=== PATIENT | female | born 1960 | race Caucasian/White ===

== ENCOUNTER 2021-01-22 18:53 | Inpatient (IN) ==
[2021-01-22] MEDS ORDERED: Ondansetron 4 MG/2 ML VIAL IVP ONE (19:51)
[2021-01-22] MEDS ORDERED: 0.9 % Sodium Chloride 1,000 ML IVC ONE (19:51)
[2021-01-22] MEDS ORDERED: *HR* FentaNYL (PF) 100 MCG/2 ML VIAL IVP ONE (19:55)
[2021-01-22 20:56] LABS: Bilirubin,Urine Negative (Negative); Blood,Urine Negative (Negative); Clarity,Urine Clear (Clear); Color,Urine Yellow (Yellow); Glucose,Urine (UA) Normal (Normal); Ketones,Urine Trace mg/dL (Negative); Leukocyte Esterase,Urine Negative (Negative); Nitrite,Urine Negative (Negative); Protein,Urine Negative (Neg-Trace); Specific Gravity,Urine 1.018 (1.010-1.025)
[2021-01-22 20:58] LABS: Basophils % 0.2 %; Hematocrit 40.4 % (35.3-44.9); Hemoglobin 13.9 g/dL (11.5-15.4); Immature Granulocytes % 0.5 % (0-4); Lymphocytes # 0.5 K/mcL (0.6-4.6); Lymphocytes % 3.5 %; Mean Corpuscular HGB Conc 34.4 g/dL (31.6-35.5); Mean Corpuscular Hemoglobin 31.4 pg (28.0-33.3); Mean Corpuscular Volume 91.4 fL (83.0-100.0); Mean Platelet Volume 8.8 fL (9.4-12.4); Monocytes # 0.4 K/mcL (0.0-1.3); Monocytes % 2.6 %; Neutrophils # 12.9 K/mcL (1.6-8.9); Platelet Count 307 K/mcL (140-400); Red Blood Count 4.42 M/mcL (3.82-4.97); Red Cell Distribution Width 12.2 % (11.5-14.5); Segmented Neutrophils % 93.2 %; White Blood Count 13.9 K/mcL (4.3-11.1)
[2021-01-22] MEDS ORDERED: Morphine Sulfate 2 MG/ML SYRINGE IVP ONE (21:18)
[2021-01-22 21:27] LABS: Alanine Aminotransferase 113 Units/L (7-52); Albumin 4.4 g/dL (3.5-5.7); Albumin/Globulin Ratio 1.4 (1.1-2.2); Alkaline Phosphatase 119 Units/L (34-104); Amylase 22 Units/L (29-103); Aspartate Amino Transferase 61 Units/L (13-39); BUN/Creatinine Ratio 20 (6-26); Bilirubin,Direct 0.8 mg/dL (0.0-0.2); Bilirubin,Total 1.8 mg/dL (0.3-1.0); Blood Urea Nitrogen 12 mg/dL (6-20); Calcium 9.9 mg/dL (8.6-10.3); Carbon Dioxide 24 mEq/L (23-29); Chloride 99 mEq/L (98-107); Globulin 3.2 g/dL (2.4-3.5); Glucose 133 mg/dL (70-105); Lipase < 3 Units/L (11-82); Osmolality,Calculated 278 (280-300); Potassium 3.7 mEq/L (3.5-5.1); Sodium 133 mEq/L (136-145); Total Protein 7.6 g/dL (6.4-8.9); eGFR For African Americans > 60 (> 60); eGFR For Non-African Americans > 60 (> 60)
[2021-01-22] MEDS ORDERED: Piperacillin/Tazobactam 3.375 GM in 0.9 % Sodium Chloride Mini Bag 100 ML IVPB ONE (21:30)
[2021-01-22] MEDS ORDERED: Ondansetron 4 MG/2 ML VIAL IVP PRN (21:54)
[2021-01-22] MEDS ORDERED: Naloxone 0.4 MG/ML INJ IVP PRN (21:54)
[2021-01-22] MEDS ORDERED: 0.9 % Sodium Chloride 1,000 ML IVC SCH (22:00)
[2021-01-22] MEDS ORDERED: *HR* FentaNYL (PF) 100 MCG/2 ML VIAL ONE (22:51)
[2021-01-22] MEDS ORDERED: *HR* Propofol 200 MG/20 ML VIAL IVP ONE (22:51)
[2021-01-22] MEDS ORDERED: *HR* Rocuronium Bromide 50 MG/5 ML VIAL ONE (22:51)
[2021-01-22] MEDS ORDERED: *HR* HYDROMORPHONE 2 MG/ML VIAL ONE (22:51)
[2021-01-23] MEDS ORDERED: *HR* HYDROmorphone PF 0.5 MG/0.5 ML SYRINGE IVP PRN ×2 (00:23→02:27)
[2021-01-23] MEDS ORDERED: Ondansetron 4 MG/2 ML VIAL IVP PRN ×2 (00:23→02:27)
[2021-01-23] MEDS ORDERED: *HR* Phenylephrine 10 MG/ML VIAL ONE (00:40)
[2021-01-23] MEDS ORDERED: Neostigmine Methylsulfate 3 MG/3 ML SYRINGE ONE (01:25)
[2021-01-23] MEDS ORDERED: 0.9 % Sodium Chloride 1,000 ML IVC SCH (02:27)
[2021-01-23] MEDS ORDERED: Naloxone 0.4 MG/ML INJ IVP PRN (02:27)
[2021-01-23] MEDS: Ondansetron 4 MG/2 ML VIAL IVP PRN ×2 (02:41→17:34)
[2021-01-23] MEDS: 0.9 % Sodium Chloride 1,000 ML IVC SCH ×2 (05:08→13:13)
[2021-01-23 05:15] LABS: Hematocrit 37.6 % (35.3-44.9); Mean Corpuscular HGB Conc 32.7 g/dL (31.6-35.5); Mean Corpuscular Hemoglobin 30.6 pg (28.0-33.3); Mean Corpuscular Volume 93.5 fL (83.0-100.0); Platelet Count 268 K/mcL (140-400); Red Blood Count 4.02 M/mcL (3.82-4.97); Red Cell Distribution Width 12.6 % (11.5-14.5); White Blood Count 16.8 K/mcL (4.3-11.1)
[2021-01-23 05:18] LABS: Hemoglobin 12.3 g/dL (11.5-15.4)
[2021-01-23] MEDS: Piperacillin/Tazobactam 3.375 GM in 0.9 % Sodium Chloride Mini Bag 100 ML IVPB SCH ×3 (05:25→22:16)
[2021-01-23 05:32] LABS: BUN/Creatinine Ratio 24 (6-26); Blood Urea Nitrogen 12 mg/dL (6-20); Calcium 8.6 mg/dL (8.6-10.3); Carbon Dioxide 22 mEq/L (23-29); Chloride 106 mEq/L (98-107); Glucose 177 mg/dL (70-105); Osmolality,Calculated 282 (280-300); Potassium 3.9 mEq/L (3.5-5.1); Sodium 134 mEq/L (136-145); eGFR For African Americans > 60 (> 60); eGFR For Non-African Americans > 60 (> 60)
[2021-01-23] MEDS ORDERED: Piperacillin/Tazobactam 3.375 GM in 0.9 % Sodium Chloride Mini Bag 100 ML IVPB SCH (06:00)
[2021-01-24] MEDS: 0.9 % Sodium Chloride 1,000 ML IVC SCH (02:11)
[2021-01-24] MEDS: Ondansetron 4 MG/2 ML VIAL IVP PRN ×3 (02:12→23:12)
[2021-01-24] MEDS: Piperacillin/Tazobactam 3.375 GM in 0.9 % Sodium Chloride Mini Bag 100 ML IVPB SCH ×3 (06:21→21:48)
[2021-01-24] MEDS: *HR* Enoxaparin 40 MG/0.4 ML SYRINGE SQ SCH (06:23)
[2021-01-24 08:08] LABS: Hematocrit 31.7 % (35.3-44.9); Mean Corpuscular HGB Conc 32.8 g/dL (31.6-35.5); Mean Corpuscular Volume 94.3 fL (83.0-100.0); Platelet Count 260 K/mcL (140-400); Red Blood Count 3.36 M/mcL (3.82-4.97); Red Cell Distribution Width 12.9 % (11.5-14.5); White Blood Count 13.2 K/mcL (4.3-11.1)
[2021-01-24 08:17] LABS: Hemoglobin 10.4 g/dL (11.5-15.4)
[2021-01-24 08:28] LABS: BUN/Creatinine Ratio 19 (6-26); Blood Urea Nitrogen 10 mg/dL (6-20); Calcium 8.7 mg/dL (8.6-10.3); Carbon Dioxide 24 mEq/L (23-29); Chloride 105 mEq/L (98-107); Glucose 113 mg/dL (70-105); Osmolality,Calculated 278 (280-300); Potassium 3.3 mEq/L (3.5-5.1); Sodium 134 mEq/L (136-145); eGFR For African Americans > 60 (> 60); eGFR For Non-African Americans > 60 (> 60)
[2021-01-24] MEDS: Loratadine 10 MG TABLET PO SCH (08:57)
[2021-01-25 03:25] LABS: Basophils % 0.2 %; Eosinophils % 0.2 %; Hematocrit 33.5 % (35.3-44.9); Hemoglobin 11.5 g/dL (11.5-15.4); Immature Granulocytes % 0.7 % (0-4); Lymphocytes # 0.9 K/mcL (0.6-4.6); Lymphocytes % 6.9 %; Mean Corpuscular HGB Conc 34.3 g/dL (31.6-35.5); Mean Corpuscular Hemoglobin 31.5 pg (28.0-33.3); Mean Corpuscular Volume 91.8 fL (83.0-100.0); Monocytes # 0.8 K/mcL (0.0-1.3); Monocytes % 5.9 %; Neutrophils # 11.2 K/mcL (1.6-8.9); Platelet Count 341 K/mcL (140-400); Red Blood Count 3.65 M/mcL (3.82-4.97); Red Cell Distribution Width 12.5 % (11.5-14.5); Segmented Neutrophils % 86.1 %
[2021-01-25 03:45] LABS: BUN/Creatinine Ratio 22 (6-26); Blood Urea Nitrogen 11 mg/dL (6-20); Calcium 9.1 mg/dL (8.6-10.3); Carbon Dioxide 25 mEq/L (23-29); Chloride 103 mEq/L (98-107); Glucose 131 mg/dL (70-105); Osmolality,Calculated 283 (280-300); Potassium 3.5 mEq/L (3.5-5.1); Sodium 136 mEq/L (136-145); eGFR For African Americans > 60 (> 60); eGFR For Non-African Americans > 60 (> 60)
[2021-01-25] MEDS: Piperacillin/Tazobactam 3.375 GM in 0.9 % Sodium Chloride Mini Bag 100 ML IVPB SCH ×3 (06:04→20:24)
[2021-01-25] MEDS: *HR* Enoxaparin 40 MG/0.4 ML SYRINGE SQ SCH (06:05)
[2021-01-25] MEDS: Ondansetron 4 MG/2 ML VIAL IVP PRN ×2 (08:26→18:08)
[2021-01-25] MEDS: Loratadine 10 MG TABLET PO SCH (08:26)
[2021-01-25] MEDS: Scopolamine Patch 1.5 MG PATCH.TD72 TD ONE ×2 (11:15→11:46)
[2021-01-25] MEDS: *HR* Promethazine 25 MG/ML VIAL IM PRN (13:13)
[2021-01-25] MEDS ORDERED: *HR* Promethazine 25 MG/ML VIAL IM ONE (18:34)
[2021-01-26] MEDS: Piperacillin/Tazobactam 3.375 GM in 0.9 % Sodium Chloride Mini Bag 100 ML IVPB SCH ×3 (05:26→21:30)
[2021-01-26] MEDS: *HR* Enoxaparin 40 MG/0.4 ML SYRINGE SQ SCH (05:27)
[2021-01-26] MEDS: Loratadine 10 MG TABLET PO SCH (08:08)
[2021-01-26] MEDS: Ondansetron 4 MG/2 ML VIAL IVP PRN ×4 (08:20→21:30)
[2021-01-26] MEDS ORDERED: Saline Nasal Spray 44 ML BOTTLE NS PRN (10:39)
[2021-01-26] MEDS: 0.9 % Sodium Chloride 1,000 ML IVC SCH ×2 (13:05→23:08)
[2021-01-26] MEDS: *HR* Promethazine 25 MG/ML VIAL IM PRN (23:12)
[2021-01-27] MEDS: Ondansetron 4 MG/2 ML VIAL IVP PRN ×3 (03:40→16:09)
[2021-01-27 05:13] LABS: Hematocrit 34.7 % (35.3-44.9); Hemoglobin 11.8 g/dL (11.5-15.4); Mean Corpuscular Hemoglobin 31.2 pg (28.0-33.3); Mean Corpuscular Volume 91.8 fL (83.0-100.0); Mean Platelet Volume 8.7 fL (9.4-12.4); Platelet Count 434 K/mcL (140-400); Red Blood Count 3.78 M/mcL (3.82-4.97); Red Cell Distribution Width 12.7 % (11.5-14.5); White Blood Count 13.7 K/mcL (4.3-11.1)
[2021-01-27] MEDS: Piperacillin/Tazobactam 3.375 GM in 0.9 % Sodium Chloride Mini Bag 100 ML IVPB SCH ×3 (05:14→22:05)
[2021-01-27] MEDS: *HR* Enoxaparin 40 MG/0.4 ML SYRINGE SQ SCH (05:15)
[2021-01-27] MEDS: *HR* Promethazine 25 MG/ML VIAL IM PRN ×2 (05:19→23:41)
[2021-01-27 05:34] LABS: BUN/Creatinine Ratio 41 (6-26); Blood Urea Nitrogen 21 mg/dL (6-20); Calcium 8.8 mg/dL (8.6-10.3); Carbon Dioxide 24 mEq/L (23-29); Chloride 104 mEq/L (98-107); Glucose 105 mg/dL (70-105); Osmolality,Calculated 291 (280-300); Potassium 3.3 mEq/L (3.5-5.1); Sodium 139 mEq/L (136-145); eGFR For African Americans > 60 (> 60); eGFR For Non-African Americans > 60 (> 60)
[2021-01-27] MEDS: Loratadine 10 MG TABLET PO SCH (09:46)
[2021-01-27] MEDS: 0.9 % Sodium Chloride 1,000 ML IVC SCH (09:54)
[2021-01-27] MEDS ORDERED: POTASSIUM CHLORIDE IN 0.9%NACL 40 MEQ/1,000 ML IV.SOLN IV ONE (12:23)
[2021-01-27] MEDS: 0.9 % Sodium Chloride w KCl 40 MEQ/1,000 ML MLS IVC SCH (14:03)
[2021-01-28] MEDS: 0.9 % Sodium Chloride w KCl 40 MEQ/1,000 ML MLS IVC SCH ×3 (00:59→22:24)
[2021-01-28 02:40] LABS: Hematocrit 32.2 % (35.3-44.9); Hemoglobin 10.9 g/dL (11.5-15.4); Mean Corpuscular HGB Conc 33.9 g/dL (31.6-35.5); Mean Corpuscular Hemoglobin 31.1 pg (28.0-33.3); Mean Corpuscular Volume 91.7 fL (83.0-100.0); Mean Platelet Volume 8.5 fL (9.4-12.4); Nucleated Red Blood Cells 0.2 /100 WBC (0); Platelet Count 412 K/mcL (140-400); Red Blood Count 3.51 M/mcL (3.82-4.97); Red Cell Distribution Width 12.7 % (11.5-14.5); White Blood Count 12.8 K/mcL (4.3-11.1)
[2021-01-28 02:57] LABS: BUN/Creatinine Ratio 32 (6-26); Blood Urea Nitrogen 14 mg/dL (6-20); Calcium 8.3 mg/dL (8.6-10.3); Carbon Dioxide 25 mEq/L (23-29); Chloride 104 mEq/L (98-107); Glucose 120 mg/dL (70-105); Osmolality,Calculated 284 (280-300); Potassium 3.5 mEq/L (3.5-5.1); Sodium 136 mEq/L (136-145); eGFR For African Americans > 60 (> 60); eGFR For Non-African Americans > 60 (> 60)
[2021-01-28 03:07] LABS: Anisocytosis 1+ (Not Present); Eosinophils # 0.5 K/mcL (0.0-0.6); Neutrophils # 9.7 K/mcL (1.6-8.9); Platelet Estimate Normal (Normal)
[2021-01-28 03:08] LABS: Polychromasia 1+ (Not Present)
[2021-01-28] MEDS: Piperacillin/Tazobactam 3.375 GM in 0.9 % Sodium Chloride Mini Bag 100 ML IVPB SCH ×3 (05:28→22:24)
[2021-01-28] MEDS: *HR* Enoxaparin 40 MG/0.4 ML SYRINGE SQ SCH (05:28)
[2021-01-28] MEDS: Ondansetron 4 MG/2 ML VIAL IVP PRN ×2 (05:32→13:44)
[2021-01-28] MEDS ORDERED: Scopolamine Patch 1.5 MG PATCH.TD72 TD ONE (08:34)
[2021-01-28] MEDS ORDERED: *HR* OxyCODONE/APAP 5/325 TABLET PO PRN (08:35)
[2021-01-28] MEDS ORDERED: Ibuprofen 800 MG TABLET PO ONE (08:35)
[2021-01-28] MEDS: *HR* Promethazine 25 MG/ML VIAL IM PRN (09:11)
[2021-01-28] MEDS: polyethylene glycoL 3350 17 GM POWD.PACK PO SCH (11:11)
[2021-01-28] MEDS: Loratadine 10 MG TABLET PO SCH (11:11)
[2021-01-28] MEDS ORDERED: Ibuprofen 800 MG TABLET PO PRN (16:00)
[2021-01-28] MEDS: Metoclopramide 10 MG/2 ML VIAL IVP SCH (18:52)
[2021-01-29] MEDS ORDERED: Metoclopramide 10 MG/2 ML VIAL IVP SCH
[2021-01-29] MEDS: Metoclopramide 10 MG/2 ML VIAL IVP SCH ×3 (00:14→15:40)
[2021-01-29 03:21] LABS: Basophils # 0.1 K/mcL (0.0-0.2); Basophils % 0.5 %; Eosinophils # 0.2 K/mcL (0.0-0.6); Eosinophils % 1.4 %; Hematocrit 30.7 % (35.3-44.9); Hemoglobin 10.2 g/dL (11.5-15.4); Immature Granulocytes % 4.7 % (0-4); Lymphocytes # 1.3 K/mcL (0.6-4.6); Lymphocytes % 11.4 %; Mean Corpuscular HGB Conc 33.2 g/dL (31.6-35.5); Mean Corpuscular Hemoglobin 30.6 pg (28.0-33.3); Mean Corpuscular Volume 92.2 fL (83.0-100.0); Mean Platelet Volume 8.4 fL (9.4-12.4); Monocytes # 1.4 K/mcL (0.0-1.3); Monocytes % 11.8 %; Neutrophils # 8.1 K/mcL (1.6-8.9); Platelet Count 397 K/mcL (140-400); Red Blood Count 3.33 M/mcL (3.82-4.97); Red Cell Distribution Width 12.6 % (11.5-14.5); Segmented Neutrophils % 70.2 %; White Blood Count 11.5 K/mcL (4.3-11.1)
[2021-01-29 03:50] LABS: BUN/Creatinine Ratio 22 (6-26); Blood Urea Nitrogen 9 mg/dL (6-20); Calcium 8.1 mg/dL (8.6-10.3); Carbon Dioxide 23 mEq/L (23-29); Chloride 105 mEq/L (98-107); Glucose 133 mg/dL (70-105); Osmolality,Calculated 277 (280-300); Potassium 3.9 mEq/L (3.5-5.1); Sodium 133 mEq/L (136-145); eGFR For African Americans > 60 (> 60); eGFR For Non-African Americans > 60 (> 60)
[2021-01-29] MEDS: *HR* Enoxaparin 40 MG/0.4 ML SYRINGE SQ SCH (05:40)
[2021-01-29] MEDS: Piperacillin/Tazobactam 3.375 GM in 0.9 % Sodium Chloride Mini Bag 100 ML IVPB SCH ×2 (05:40→15:37)
[2021-01-29] MEDS: 0.9 % Sodium Chloride w KCl 40 MEQ/1,000 ML MLS IVC SCH (10:15)
[2021-01-29] MEDS: Loratadine 10 MG TABLET PO SCH (10:17)
[2021-01-29] MEDS: polyethylene glycoL 3350 17 GM POWD.PACK PO SCH (10:18)
[2021-01-30 02:36] LABS: Basophils # 0.1 K/mcL (0.0-0.2); Basophils % 0.6 %; Eosinophils # 0.3 K/mcL (0.0-0.6); Eosinophils % 2.2 %; Hematocrit 34.3 % (35.3-44.9); Hemoglobin 11.4 g/dL (11.5-15.4); Immature Granulocytes % 3.7 % (0-4); Lymphocytes # 1.7 K/mcL (0.6-4.6); Lymphocytes % 12.6 %; Mean Corpuscular HGB Conc 33.2 g/dL (31.6-35.5); Mean Corpuscular Hemoglobin 30.8 pg (28.0-33.3); Mean Corpuscular Volume 92.7 fL (83.0-100.0); Mean Platelet Volume 8.5 fL (9.4-12.4); Monocytes # 1.2 K/mcL (0.0-1.3); Monocytes % 9.4 %; Neutrophils # 9.4 K/mcL (1.6-8.9); Platelet Count 437 K/mcL (140-400); Red Cell Distribution Width 12.6 % (11.5-14.5); Segmented Neutrophils % 71.5 %; White Blood Count 13.1 K/mcL (4.3-11.1)
[2021-01-30] MEDS: *HR* Enoxaparin 40 MG/0.4 ML SYRINGE SQ SCH (05:42)
[2021-01-30] MEDS: Loratadine 10 MG TABLET PO SCH (07:52)
[2021-01-30] MEDS: polyethylene glycoL 3350 17 GM POWD.PACK PO SCH (07:53)
[2021-01-30] MEDS ORDERED: Lactobacillus 1 EACH CAP.SPRINK PO SCH (09:00)
[2021-01-30 10:57] VITALS: BP 108/69
== END 2021-01-30 12:33 | disposition home or self-care (01) | DRG 854 ==
LOC: 3ANU 18:53 → EMEROOARM 18:53 → SUATTDRO 22:08 → 3ANU 01-23 00:06 → SUATTDRO 01-23 17:07
PROVIDERS: ADMIT Internal Medicine; ATTEND Internal Medicine

== ENCOUNTER 2021-08-19 11:02 | Inpatient (IN) ==
[~2021-08-19 11:02] MED LIST: Acetaminophen IV 1,000 MG/100 ML BAG IVPB ONE; Ringers Solution, Lactated 1,000 ML IVC ONE
[2021-08-19] MEDS ORDERED: Ringers Solution, Lactated 1,000 ML IVC ONE (11:15)
[2021-08-19] MEDS ORDERED: Famotidine 20 MG/2 ML VIAL IVP ONE (11:15)
[2021-08-19] MEDS ORDERED: cefOXitin 2,000 MG in Water for inj. (sterile) 10 ML IVP ONE (11:20)
[2021-08-19] MEDS ORDERED: *HR* Propofol 200 MG/20 ML VIAL IVP ONE ×2 (11:47→16:17)
[2021-08-19] MEDS ORDERED: *HR* Midazolam HCl 2 MG/2 ML VIAL ONE (11:47)
[2021-08-19] MEDS ORDERED: *HR* FentaNYL (PF) 100 MCG/2 ML VIAL ONE (11:47)
[2021-08-19] MEDS ORDERED: *HR* Rocuronium Bromide 50 MG/5 ML VIAL ONE ×2 (11:48→16:01)
[2021-08-19] MEDS ORDERED: *HR* Succinylcholine 200 MG/10 ML VIAL IVP ONE (11:48)
[2021-08-19] MEDS ORDERED: Lidocaine -MPF 2% 5 ML VIAL ONE (11:48)
[2021-08-19] MEDS ORDERED: Ondansetron 4 MG/2 ML VIAL ONE (11:48)
[2021-08-19] MEDS ORDERED: Dexmedetomidine HCl 400 MCG/100 ML MLS IVC ONE (11:56)
[2021-08-19] MEDS ORDERED: Naloxone 0.4 MG/ML INJ IVP PRN ×2 (12:18→18:29)
[2021-08-19] MEDS ORDERED: *HR* Labetalol 20 MG/4 ML SYRINGE IVP PRN (12:18)
[2021-08-19] MEDS ORDERED: Albuterol 2.5 MG/3 ML NEBULIZER IH PRN (12:18)
[2021-08-19] MEDS ORDERED: *HR* FentaNYL (PF) 100 MCG/2 ML VIAL IVP PRN ×2 (12:18→18:29)
[2021-08-19] MEDS ORDERED: *HR* HYDROmorphone (PF) 1 MG/ML SYRINGE IVP PRN (12:18)
[2021-08-19] MEDS ORDERED: Nitroglycerin 0.4 MG TAB.SUBL SL PRN (12:18)
[2021-08-19] MEDS ORDERED: Ondansetron 4 MG/2 ML VIAL IVP PRN ×2 (12:18→18:29)
[2021-08-19] MEDS ORDERED: EPHEDrine 50 MG/ML VIAL ONE (14:21)
[2021-08-19] MEDS ORDERED: *HR* HYDROMORPHONE 2 MG/ML VIAL ONE (15:41)
[2021-08-19] MEDS ORDERED: Sugammadex Sodium 200 MG/2 ML VIAL IV ONE (16:44)
[2021-08-19] MEDS ORDERED: *HR* Metoprolol 5 MG/5 ML VIAL IVP PRN (18:29)
[2021-08-19] MEDS: Acetaminophen IV 1,000 MG/100 ML BAG IVPB SCH ×2 (19:35→23:13)
[2021-08-19] MEDS: Ketorolac 30 MG/ML VIAL IVP SCH ×2 (19:36→23:09)
[2021-08-19] MEDS: Scopolamine Patch 1.5 MG PATCH.TD72 TD SCH (19:40)
[2021-08-19] MEDS: 0.9 % Sodium Chloride 1,000 ML IVC SCH (19:41)
[2021-08-19] MEDS: Piperacillin/Tazobactam 3.375 GM in 0.9 % Sodium Chloride Mini Bag 100 ML IVPB SCH (23:35)
[2021-08-20] MEDS: Ketorolac 30 MG/ML VIAL IVP SCH ×4 (05:31→23:47)
[2021-08-20] MEDS: Acetaminophen IV 1,000 MG/100 ML BAG IVPB SCH ×4 (05:31→23:53)
[2021-08-20] MEDS: Pantoprazole 40 MG VIAL IVP SCH (07:45)
[2021-08-20] MEDS: Piperacillin/Tazobactam 3.375 GM in 0.9 % Sodium Chloride Mini Bag 100 ML IVPB SCH ×2 (07:48→17:17)
[2021-08-20 08:56] LABS: Basophils % 0.1 %; Hematocrit 37.1 % (35.3-44.9); Hemoglobin 12.7 g/dL (11.5-15.4); Immature Granulocytes % 0.4 % (0-4); Lymphocytes # 0.4 K/mcL (0.6-4.6); Lymphocytes % 2.4 %; Mean Corpuscular HGB Conc 34.2 g/dL (31.6-35.5); Mean Corpuscular Hemoglobin 32.3 pg (28.0-33.3); Mean Corpuscular Volume 94.4 fL (83.0-100.0); Mean Platelet Volume 8.9 fL (9.4-12.4); Monocytes # 1.2 K/mcL (0.0-1.3); Monocytes % 7.1 %; Neutrophils # 15.2 K/mcL (1.6-8.9); Platelet Count 266 K/mcL (140-400); Red Blood Count 3.93 M/mcL (3.82-4.97); Red Cell Distribution Width 12.1 % (11.5-14.5); White Blood Count 16.9 K/mcL (4.3-11.1)
[2021-08-20 09:21] LABS: BUN/Creatinine Ratio 20 (6-26); Blood Urea Nitrogen 13 mg/dL (6-20); Calcium 8.7 mg/dL (8.6-10.3); Carbon Dioxide 25 mEq/L (23-29); Chloride 107 mEq/L (98-107); Glucose 152 mg/dL (70-105); Magnesium 1.7 mg/dL (1.6-2.6); Osmolality,Calculated 289 (280-300); Phosphorous 2.9 mg/dL (2.7-4.5); Potassium 3.6 mEq/L (3.5-5.1); Sodium 138 mEq/L (136-145); eGFR For African Americans > 60 (> 60); eGFR For Non-African Americans > 60 (> 60)
[2021-08-20] MEDS: 0.9 % Sodium Chloride 1,000 ML IVC SCH ×2 (10:19→21:30)
[2021-08-20] MEDS ORDERED: Chloraseptic Spray 177 ML BOTTLE MM PRN (11:37)
[2021-08-20] MEDS ORDERED: Lidocaine Viscous Oral Soln 15 ML SOLUTION MM PRN (11:37)
[2021-08-20] MEDS: *HR* Heparin 5,000 UNIT/ML VIAL SQ SCH (17:17)
[2021-08-21] MEDS: Acetaminophen IV 1,000 MG/100 ML BAG IVPB SCH ×3 (05:36→17:59)
[2021-08-21] MEDS: *HR* Heparin 5,000 UNIT/ML VIAL SQ SCH ×2 (05:36→17:53)
[2021-08-21] MEDS: Ketorolac 30 MG/ML VIAL IVP SCH ×4 (05:37→23:34)
[2021-08-21 05:59] LABS: Basophils % 0.1 %; Hematocrit 32.8 % (35.3-44.9); Immature Granulocytes % 0.5 % (0-4); Lymphocytes % 7.4 %; Mean Corpuscular HGB Conc 33.5 g/dL (31.6-35.5); Mean Corpuscular Volume 95.3 fL (83.0-100.0); Mean Platelet Volume 9.1 fL (9.4-12.4); Monocytes # 1.1 K/mcL (0.0-1.3); Monocytes % 8.2 %; Neutrophils # 10.7 K/mcL (1.6-8.9); Platelet Count 243 K/mcL (140-400); Red Blood Count 3.44 M/mcL (3.82-4.97); Red Cell Distribution Width 12.7 % (11.5-14.5); Segmented Neutrophils % 83.8 %; White Blood Count 12.8 K/mcL (4.3-11.1)
[2021-08-21 06:55] LABS: BUN/Creatinine Ratio 28 (6-26); Blood Urea Nitrogen 15 mg/dL (6-20); Calcium 8.7 mg/dL (8.6-10.3); Carbon Dioxide 25 mEq/L (23-29); Chloride 111 mEq/L (98-107); Glucose 103 mg/dL (70-105); Magnesium 1.9 mg/dL (1.6-2.6); Osmolality,Calculated 287 (280-300); Phosphorous 1.6 mg/dL (2.7-4.5); Potassium 3.2 mEq/L (3.5-5.1); Sodium 138 mEq/L (136-145); eGFR For African Americans > 60 (> 60); eGFR For Non-African Americans > 60 (> 60)
[2021-08-21] MEDS: 0.9 % Sodium Chloride 1,000 ML IVC SCH (08:03)
[2021-08-21] MEDS: Pantoprazole 40 MG VIAL IVP SCH (08:05)
[2021-08-21] MEDS ORDERED: Potassium Phosphate 44 MEQ in 0.9 % Sodium Chloride 250 ML IVPB ONE (11:34)
[2021-08-21] MEDS: D5% in 0.45% NACL w KCl 20 MEQ/1,000 ML MLS IVC SCH (14:20)
[2021-08-22] MEDS: Acetaminophen IV 1,000 MG/100 ML BAG IVPB SCH (03:13)
[2021-08-22] MEDS: D5% in 0.45% NACL w KCl 20 MEQ/1,000 ML MLS IVC SCH (03:26)
[2021-08-22 05:05] LABS: Basophils % 0.2 %; Eosinophils # 0.1 K/mcL (0.0-0.6); Eosinophils % 0.8 %; Hematocrit 31.3 % (35.3-44.9); Hemoglobin 9.9 g/dL (11.5-15.4); Immature Granulocytes % 0.3 % (0-4); Lymphocytes # 1.4 K/mcL (0.6-4.6); Lymphocytes % 14.9 %; Mean Corpuscular HGB Conc 31.6 g/dL (31.6-35.5); Mean Corpuscular Hemoglobin 30.9 pg (28.0-33.3); Mean Corpuscular Volume 97.8 fL (83.0-100.0); Mean Platelet Volume 9.5 fL (9.4-12.4); Monocytes # 0.8 K/mcL (0.0-1.3); Monocytes % 9.1 %; Neutrophils # 6.9 K/mcL (1.6-8.9); Platelet Count 237 K/mcL (140-400); Red Cell Distribution Width 12.6 % (11.5-14.5); Segmented Neutrophils % 74.7 %; White Blood Count 9.3 K/mcL (4.3-11.1)
[2021-08-22 05:23] LABS: BUN/Creatinine Ratio 29 (6-26); Blood Urea Nitrogen 13 mg/dL (6-20); Calcium 8.4 mg/dL (8.6-10.3); Carbon Dioxide 24 mEq/L (23-29); Chloride 111 mEq/L (98-107); Glucose 104 mg/dL (70-105); Magnesium 1.9 mg/dL (1.6-2.6); Osmolality,Calculated 288 (280-300); Phosphorous 1.4 mg/dL (2.7-4.5); Potassium 3.6 mEq/L (3.5-5.1); Sodium 139 mEq/L (136-145); eGFR For African Americans > 60 (> 60); eGFR For Non-African Americans > 60 (> 60)
[2021-08-22] MEDS: *HR* Heparin 5,000 UNIT/ML VIAL SQ SCH ×2 (06:06→17:34)
[2021-08-22] MEDS: Ketorolac 30 MG/ML VIAL IVP SCH (06:07)
[2021-08-22] MEDS ORDERED: Acetaminophen IV 1,000 MG/100 ML BAG IVPB SCH (09:00)
[2021-08-22] MEDS: Ibuprofen 600 MG TABLET PO SCH ×3 (10:30→21:26)
[2021-08-22] MEDS: Pantoprazole 40 MG VIAL IVP SCH (10:30)
[2021-08-22] MEDS: Acetaminophen 325 MG TABLET PO SCH ×3 (12:41→23:53)
[2021-08-22] MEDS: Scopolamine Patch 1.5 MG PATCH.TD72 TD SCH (17:35)
[2021-08-23] MEDS: Acetaminophen 325 MG TABLET PO SCH ×2 (06:34→11:58)
[2021-08-23] MEDS: *HR* Heparin 5,000 UNIT/ML VIAL SQ SCH (06:34)
[2021-08-23 08:02] LABS: Basophils % 0.5 %; Eosinophils # 0.2 K/mcL (0.0-0.6); Eosinophils % 3.8 %; Hematocrit 30.4 % (35.3-44.9); Immature Granulocytes % 0.5 % (0-4); Lymphocytes # 1.1 K/mcL (0.6-4.6); Mean Corpuscular HGB Conc 32.9 g/dL (31.6-35.5); Mean Corpuscular Volume 94.1 fL (83.0-100.0); Mean Platelet Volume 9.7 fL (9.4-12.4); Monocytes # 0.5 K/mcL (0.0-1.3); Neutrophils # 4.3 K/mcL (1.6-8.9); Platelet Count 271 K/mcL (140-400); Red Blood Count 3.23 M/mcL (3.82-4.97); Red Cell Distribution Width 12.4 % (11.5-14.5); Segmented Neutrophils % 69.2 %; White Blood Count 6.3 K/mcL (4.3-11.1)
[2021-08-23 08:11] LABS: BUN/Creatinine Ratio 14 (6-26); Blood Urea Nitrogen 6 mg/dL (6-20); Calcium 8.8 mg/dL (8.6-10.3); Carbon Dioxide 26 mEq/L (23-29); Chloride 108 mEq/L (98-107); Glucose 98 mg/dL (70-105); Magnesium 1.9 mg/dL (1.6-2.6); Osmolality,Calculated 280 (280-300); Phosphorous 2.8 mg/dL (2.7-4.5); Potassium 3.4 mEq/L (3.5-5.1); Sodium 136 mEq/L (136-145); eGFR For African Americans > 60 (> 60); eGFR For Non-African Americans > 60 (> 60)
[2021-08-23] MEDS ORDERED: Potassium Chloride Elixir 20 MEQ/15 ML UDC PO ONE (08:12)
[2021-08-23] MEDS: Ibuprofen 600 MG TABLET PO SCH (08:13)
[2021-08-23] MEDS: Pantoprazole 40 MG VIAL IVP SCH (08:13)
[2021-08-23] MEDS: *HR* HYDROcodone/Acet 5/325 mg TABLET PO PRN ×2 (08:13→12:00)
[2021-08-23 11:15] VITALS: BP 124/79; PULSE 88; TEMP 98.3; O2SAT 95
== END 2021-08-23 14:01 | disposition home or self-care (01) | DRG 331 ==
LOC: SAMDAY 11:02 → 3ANU 14:34
PROVIDERS: ADMIT Surgery; ATTEND Surgery
PROC: GENAPPY (ICD-10-PCS; 2021-08-19 12:40)